=== PATIENT | female | born 1990 | race Caucasian/White ===

== ENCOUNTER 2024-12-12 08:49 | Day surgery (SDC) | payer BC, SELFPAY ==
[2024-12-11 14:00] VITALS: BMI 35.2
[2024-12-12] VITALS (11 sets, daily range): BP systolic 99–135; BP diastolic 52–75; PULSE 78–97; RESP 13–20; TEMP 36.7–37.1; O2SAT 98–100; BMI 35.5
[2024-12-12 09:24] LABS: HCG Qualitative,Urine Negative
[2024-12-12] MEDS: SODIUM CHLORIDE 0.9% 500 ML 500 ML 20 ML IV (11:26)
[2024-12-12] MEDS: MIDAZOLAM INJ 1 MG/ML VIAL 2 ML (ASD USE ONLY) 2 MG IVP (11:31)
[2024-12-12] MEDS: fentaNYL CIT INJ 50 mCg/ML AMP 2ML (ASD USE ONLY) IVP (11:31)
--- NOTE | 2024-12-12 11:50 | SUR.PHASEII ---
1143 patient is sleepy and arousable, breathing unlabored, s/p colonoscopy under IV sedation, report received from Fede RUELAS
--- NOTE | 2024-12-12 12:37 | SUR.PHASEII ---
1228 patient is awake, alert, breathing unlabored, patient able to tolerate water with no nausea or vomiting, meets discharge criteria, discharge instructions given to patient and mother Agnieszka, patient discharged home in wheelchair with all belongings
== END 2024-12-12 12:28 | disposition home or self-care (01) ==
PROVIDERS: PCP Nurse Practitioner Family; Referring Provider Specialist; Visit Provider Specialist
PROC: 0DBE8ZX Excision of Large Intestine, Via Natural or Artificial Opening Endoscopic, Diagnostic (ICD-10-PCS; CPT 45380; principal; 2024-12-12 10:45)
DX: K64.1 Second degree hemorrhoids (principal); R19.4 Change in bowel habit; R10.85 Abdominal pain of multiple sites
CPT/HCPCS: 45378; 81025; A4217; A4649; J1200; J2250; J3010; J7999